=== PATIENT | female | born 1980 | race Caucasian/White ===

== ENCOUNTER 2019-12-23 08:59 | Inpatient (IN) | payer MEDICAID ==
[~2019-12-23] VITALS: Ht 165.1 cm; Wt 136.1 kg
[2019-12-23] MEDS ORDERED: NALOXONE HCL 0.4 MG/ML 1ML VIAL IM PRN (09:45)
[2019-12-23] MEDS ORDERED: LIDOCAINE HCL 1% 20ML VIAL (Pyxis) INJ INFIL SCH (09:45)
[2019-12-23] MEDS ORDERED: METHYLERGONOVINE MALEATE 0.2 MG/ML IM PRN (09:45)
[2019-12-23] MEDS ORDERED: BUTORPHANOL TARTRATE 2 MG/ML VIAL IV PRN (09:45)
[2019-12-23] MEDS ORDERED: CARBOPROST TROMETHAMINE 250 MCG/ML AMPUL IM PRN (09:45)
[2019-12-23] MEDS ORDERED: MISOPROSTOL 100MCG TABLET PO NR (11:00)
[2019-12-23] MEDS: LACTATED RINGERS 1,000 ML IV SCH ×2 (11:19→18:54)
[2019-12-23 11:49] LABS: HEMATOCRIT. 34.5 % (36.0-48.0); HEMOGLOBIN. 11.6 g/dL (12.0-16.0); MEAN CORPUSCULAR HEMOGLOBIN 31.9 pg (28.0-32.0); MEAN CORPUSCULAR VOLUME 95.3 fL (81.0-99.0); MEAN PLATELET VOLUME 7.6 fl (7.4-10.4); PLATELET 242 x1000/uL (130-400); RED BLOOD CELL COUNT 3.62 mill/uL (4.2-5.4); RED CELL DISTRIBUTION WIDTH 14.6 % (11.6-14.6)
[2019-12-23 11:55] LABS: PARTIAL THROMBOPLASTIN TIME 27.7 sec (23.4-31.0); PROTHROMBIN TIME 10.6 sec (9.6-11.0)
[2019-12-23] MEDS ORDERED: ROPIVACAINE HCL/PF EPIDURAL 200 ML EPI SCH (12:15)
[2019-12-23 12:34] LABS: HEPATITIS B SURFACE ANTIGEN NEGATIVE
[2019-12-23 12:48] LABS: CLARITY URINE CLEAR (CLEAR); COLOR URINE YELLOW (YELLOW); KETONES URINE NEGATIVE (NEGATIVE); LEUKOCYTE ESTERASE URINE NEGATIVE (NEGATIVE); NITRITE URINE NEGATIVE (NEGATIVE); OCCULT BLOOD URINE NEGATIVE (NEGATIVE); PROTEIN URINE NEGATIVE (NEGATIVE); SPECIFIC GRAVITY URINE 1.024 (1.005-1.030); UROBILINOGEN URINE 0.2 E.U./dL (0.2-1.0)
[2019-12-23 12:50] LABS: *AMPHETAMINES SCREEN URINE NEGATIVE (NEGATIVE); *BARBITURATES SCREEN URINE NEGATIVE (NEGATIVE); PLATELET ESTIMATE NORMAL
[2019-12-23 12:51] LABS: *BENZODIAZEPINES SCREEN URINE NEGATIVE (NEGATIVE); *COCAINE SCREEN URINE NEGATIVE (NEGATIVE); METHADONE URINE SCREEN NEGATIVE (NEGATIVE); OPIATES URINE SCREEN NEGATIVE (NEGATIVE); PHENCYCLIDINE URINE SCREEN NEGATIVE (NEGATIVE)
[2019-12-23 13:12] LABS: CANNABINOID URINE SCREEN PRESUMTIVE POSITIVE (NEGATIVE)
[2019-12-23] MEDS: DEXT 5%/LR + PITOCIN 20UNITS/L 1,000 ML IV SCH (15:46)
[2019-12-24] MEDS: LACTATED RINGERS 1,000 ML IV SCH (03:02)
[2019-12-24] MEDS ORDERED: LIDOCAINE HCL 2%/EPINEPHRINE 1:100,000 20 ML VIAL INFIL ONE (09:58)
[2019-12-24] MEDS ORDERED: EPHEDRINE SULFATE 50MG/ML VIAL ONE (09:58)
[2019-12-24] MEDS ORDERED: ACETAMINOPHEN 500MG TABLET PO NR ×2 (14:15→19:15)
[2019-12-24] MEDS ORDERED: FENTANYL CITRATE/PF 50MCG/ML 2ML VIAL ONE (14:23)
[2019-12-24] MEDS ORDERED: ROPIVACAINE HCL/PF EPIDURAL 200 ML EPI ONE (14:24)
[2019-12-24] MEDS: AMPICILLIN 2,000 MG in SODIUM CHLORIDE 0.9% 100 ML IV SCH ×2 (14:40→21:33)
[2019-12-24] MEDS: GENTAMICIN 100MG PREMIX 50 ML IV SCH ×2 (15:00→22:46)
[2019-12-24] MEDS ORDERED: DEXT 5%/LR + PITOCIN 20UNITS/L 1,000 ML IV ONE (16:10)
[2019-12-24] MEDS ORDERED: DEXT 5%/LR + PITOCIN 20UNITS/L 1,000 ML IV SCH (16:39)
[2019-12-24] MEDS ORDERED: BENZOCAINE/LANOLIN/ALOE VERA SPRAY TOP PRN (16:45)
[2019-12-24] MEDS ORDERED: DIPHENHYDRAMINE 25MG CAPSULE PO PRN (16:45)
[2019-12-24] MEDS ORDERED: METHYLERGONOVINE MALEATE 0.2 MG/ML IM PRN ×3 (16:45→21:45)
[2019-12-24] MEDS ORDERED: OXYCODONE HCL/ACETAMINOPHEN 5/325MG TABLET PO PRN ×2 (16:45)
[2019-12-24] MEDS ORDERED: GLYCERIN/WITCH HAZEL LEAF MEDICATED PAD TOP PRN (16:45)
[2019-12-24] MEDS ORDERED: BISACODYL 10MG SUPP PR PRN (16:45)
[2019-12-24] MEDS ORDERED: HEMORRHOIDAL SUPP PR PRN (16:45)
[2019-12-24] MEDS ORDERED: IBUPROFEN 400MG TABLET PO PRN (16:45)
[2019-12-24] MEDS ORDERED: LANOLIN OINT 7GM TUBE TOP PRN (16:45)
[2019-12-24] MEDS ORDERED: RHO(D) IMMUNE GLOBULIN 300 MCG/SYR IM PRN (16:45)
[2019-12-24] MEDS: MAGNESIUM/ALUMINUM HYDROXIDE/SIMETHICONE 30ML UDC PO SCH (17:00)
[2019-12-24] MEDS ORDERED: METHYLERGONOVINE MALEATE 0.2MG TABLET PO SCH (17:00)
[2019-12-24] MEDS: DEXT 5%/LR + PITOCIN 20UNITS/L 1,000 ML IV SCH ×2 (17:47→23:28)
[2019-12-24] MEDS ORDERED: MISOPROSTOL 200MCG TABLET ONE (18:00)
[2019-12-24] MEDS ORDERED: MISOPROSTOL 200MCG TABLET RC ONE (18:00)
[2019-12-24] MEDS ORDERED: MISOPROSTOL 200MCG TABLET RC NR (19:00)
[2019-12-24] MEDS: CLINDAMYCIN 900 MG in DEXTROSE 5% WATER 50 ML IV SCH (20:41)
[2019-12-24] MEDS ORDERED: DOCUSATE SODIUM 100MG CAPSULE PO SCH (21:00)
[2019-12-24] MEDS ORDERED: IBUPROFEN 800MG TABLET PO PRN (21:30)
[2019-12-24] MEDS ORDERED: IBUPROFEN 800MG TABLET PO NR (21:30)
[2019-12-24] MEDS ORDERED: DEXT 5%/LR + PITOCIN 20UNITS/L 1,000 ML IV NR (21:45)
[2019-12-24] MEDS ORDERED: METHYLERGONOVINE MALEATE 0.2 MG/ML ONE (22:00)
[2019-12-24 22:03] LABS: HEMATOCRIT. 31.4 % (36.0-48.0); HEMOGLOBIN. 10.9 g/dL (12.0-16.0); MEAN CORPUSCULAR HEMOGLOBIN 32.7 pg (28.0-32.0); MEAN CORPUSCULAR VOLUME 94.1 fL (81.0-99.0); MEAN PLATELET VOLUME 7.3 fl (7.4-10.4); PLATELET 190 x1000/uL (130-400); RED BLOOD CELL COUNT 3.34 mill/uL (4.2-5.4); RED CELL DISTRIBUTION WIDTH 14.6 % (11.6-14.6)
[2019-12-24 22:29] LABS: PLATELET ESTIMATE NORMAL
[2019-12-24 23:10] VITALS: BP 109/54
[2019-12-24 23:40] VITALS: BP 113/53
[2019-12-25 00:10] VITALS: BP 110/48
[2019-12-25] MEDS: AMPICILLIN 2,000 MG in SODIUM CHLORIDE 0.9% 100 ML IV SCH ×3 (02:53→14:46)
[2019-12-25 04:00] VITALS: BP 101/49
[2019-12-25] MEDS: CLINDAMYCIN 900 MG in DEXTROSE 5% WATER 50 ML IV SCH ×2 (04:48→12:48)
[2019-12-25] MEDS: GENTAMICIN 100MG PREMIX 50 ML IV SCH ×2 (06:43→15:28)
[2019-12-25 07:22] LABS: BASOPHILS % 0.3 % (0.0-2.0); EOSINOPHILS % 0.4 % (0.0-5.0); HEMATOCRIT. 31.1 % (36.0-48.0); HEMOGLOBIN. 10.5 g/dL (12.0-16.0); LYMPHOCYTES % 9.1 % (20.0-50.0); MEAN CORPUSCULAR VOLUME 94.4 fL (81.0-99.0); MEAN PLATELET VOLUME 7.1 fl (7.4-10.4); MONOCYTES % 5.4 % (2.0-8.0); NEUTROPHILS % 84.8 % (40.0-76.0); PLATELET 195 x1000/uL (130-400); RED BLOOD CELL COUNT 3.29 mill/uL (4.2-5.4)
[2019-12-25 07:25] LABS: CHLORIDE 114 mEq/L (98-107)
[2019-12-25] MEDS: FERROUS SULFATE 325MG TABLET PO SCH ×3 (07:33→16:55)
[2019-12-25] MEDS: SIMETHICONE 80MG TABLET CHEW PO SCH ×4 (07:34→20:44)
[2019-12-25 08:00] VITALS: BP 94/52
[2019-12-25] MEDS ORDERED: PRENATAL VIT/FE FUMARATE/FA TABLET PO SCH (09:00)
[2019-12-25] MEDS: LEVOTHYROXINE SODIUM 25MCG TABLET PO SCH (09:03)
[2019-12-25 16:00] VITALS: BP 122/58
[2019-12-25 20:30] VITALS: BP 108/53
[2019-12-25] MEDS: MAGNESIUM/ALUMINUM HYDROXIDE/SIMETHICONE 30ML UDC PO SCH (20:44)
[2019-12-26 04:40] VITALS: BP 113/53
[2019-12-26 06:15] LABS: BASOPHILS % 0.3 % (0.0-2.0); EOSINOPHILS % 1.1 % (0.0-5.0); HEMATOCRIT. 27.3 % (36.0-48.0); HEMOGLOBIN. 9.1 g/dL (12.0-16.0); LYMPHOCYTES % 12.4 % (20.0-50.0); MEAN CORPUSCULAR HEMOGLOBIN 31.9 pg (28.0-32.0); MEAN CORPUSCULAR VOLUME 95.1 fL (81.0-99.0); MEAN PLATELET VOLUME 7.4 fl (7.4-10.4); MONOCYTES % 5.4 % (2.0-8.0); NEUTROPHILS % 80.8 % (40.0-76.0); PLATELET 183 x1000/uL (130-400); RED BLOOD CELL COUNT 2.87 mill/uL (4.2-5.4); RED CELL DISTRIBUTION WIDTH 14.9 % (11.6-14.6)
[2019-12-26] MEDS: LEVOTHYROXINE SODIUM 25MCG TABLET PO SCH (07:14)
[2019-12-26 07:30] VITALS: BP 112/82
[2019-12-27 17:06] LABS: CANNABINOID CONFIRMATION URINE Positive (.)
== END 2019-12-26 11:00 | disposition home or self-care (01) | DRG 560 ==
LOC: OBSVTOIN 08:59 → 8 EST LDRP 08:59 → 8EST 12-24 21:30
PROVIDERS: ADMIT Obstetrics & Gynecology; ATTEND Obstetrics & Gynecology
PROC: 10E0XZZ Delivery of Products of Conception, External Approach (ICD-10-PCS; principal; 2019-12-24)
PROC: 3E0R3BZ Introduction of Anesthetic Agent into Spinal Canal, Percutaneous Approach (ICD-10-PCS; 2019-12-24)
PROC: 00HU33Z Insertion of Infusion Device into Spinal Canal, Percutaneous Approach (ICD-10-PCS; 2019-12-24)
PROC: 3E033VJ Introduction of Other Hormone into Peripheral Vein, Percutaneous Approach (ICD-10-PCS; 2019-12-24)
DX: O76 Abnormality in fetal heart rate and rhythm complicating labor and delivery (principal); O99.214 Obesity complicating childbirth; O75.2 Pyrexia during labor, not elsewhere classified; O48.0 Post-term pregnancy; E66.01 Morbid (severe) obesity due to excess calories; Z37.0 Single live birth; Z3A.39 39 weeks gestation of pregnancy
CPT/HCPCS: 36415; 76815; 80048; 80170; 80305; 80349; 81003; 85025; 86592; 86703; 86762; 86850; 86900; 87340; J0290; J0595; J1580; J2210; J2590; J2795; J3010; J3490; J7050; J7060; J7120